=== PATIENT | male | born 1970 | race Caucasian/White ===

== ENCOUNTER 2017-10-22 15:48 | Outpatient (CLI) | payer MEDICARE ==
--- NOTE | 2017-10-22 16:58 | RAD ---
PA AND LATERAL VIEWS OF CHEST: Date: 10/22/17 HISTORY: Cough. FINDINGS/IMPRESSION: The heart size is borderline. There is mild infiltrate in the right lung base with accompanying small effusion. The possibility of pneumonia should be considered. POS: [facility]
== END 2017-10-22 15:49 | disposition home or self-care (01) ==
LOC: MADRAD 15:48
PROVIDERS: ATTEND General Practice
DX: R05 Cough (principal); R91.8 Other nonspecific abnormal finding of lung field; J90 Pleural effusion, not elsewhere classified
CPT/HCPCS: 71046